=== PATIENT | female | born 1975 | race Caucasian/White ===

== ENCOUNTER 2025-05-29 17:55 | Emergency (ER) | payer OTHER, SELFPAY ==
[2025-05-29 17:57] VITALS: BP 141/90
[2025-05-29 18:32] LABS: Hematocrit 36.8 % (37.0-47.0); Hemoglobin 12.3 g/dL (12.0-16.0); Mean Corp Hgb Conc. 33.4 g/dL (33.0-37.0); Mean Corpuscular Volume 88.7 fL (81.0-99.0); Nucleated Red Blood Cells % 0 %; Platelet Count 294 10^3/uL (130-400); Red Cell Dist. Width 12.9 % (11.5-14.5)
[2025-05-29 18:43] LABS: ALT (SGPT) 19 U/L (0-35); AST (SGOT) 20 U/L (14-36); Albumin 4.4 g/dl (3.5-5.0); Alkaline Phosphatase 43 U/L (38-126); Blood Urea Nitrogen 12 mg/dl (7-17); Calcium 9.2 mg/dl (8.4-10.2); Carbon Dioxide 25 mmol/L (22-30); Chloride 105 mmol/L (98-107); Glucose 96 mg/dl (70-99); Potassium 4.0 mmol/L (3.5-5.1); Sodium 135 mmol/L (135-145); Total Protein 7.1 g/dl (6.3-8.2); eGFR > 60.00
[2025-05-29 18:58] LABS: Troponin I < 0.012 ng/ml
--- NOTE | 2025-05-29 20:56 | ED.GENMED ---
History of Present Illness
General
Chief Complaint: Cardiac Symptoms
Source: patient
Exam Limitations: none
Time Seen by Provider: 05/29/25 20:45
History of Present Illness
History of Present Illness:
Very pleasant 49-year-old female complaining of episodes of very localized chest pain. Each episode lasts a few seconds. They happen fairly frequently maybe 1 to 2/h. They are nonexertional. Nonpleuritic. No radiation to the arms back or neck.
No shortness of breath no diaphoresis no syncope or near syncope. She actually had an episode while I was talking to her and clinically had no change in her appearance. This episode lasted a few seconds. She admits to some stress. She exercised
Thursday without issues. She does weightlifting and Em.
Past History
Past History
ED Past Medical History: Psychiatric (Depression)
ED Past Surgical History: Appendectomy and Other (Bilateral foot surgery)
Social History
Tobacco: Non-smoker
Alcohol: Occasional
Drug: None
Personal:
Review of Systems
Review of Systems
All Other Systems: Not applicable
Constitutional: Denies fever
Respiratory: Reports no symptoms
ABD/GI: Reports no symptoms
Phy Exam
Physical Exam
Physical Exam:
GENERAL: Alert and oriented in no apparent distress
EYE: Orbits normal.
NECK: Supple
CARDIAC: Regular rate and rhythm without any obvious murmurs.
LUNGS: Clear breath sounds,normal
ABDOMEN: Soft, without focal tenderness or distention
NEUROLOGICAL: Alert and oriented , grossly non-focal
SKIN: Warm and dry, no rash or lesion, no discoloration, skin intact.
MUSCULOSKELETAL: No edema,no deformity.Good color
PSYCH: Normal and appropriate interaction.
Course
Orders/Labs/Results
Orders:
Orders
05/29/25 18:02
Electrocardiogram (*1) Urgent
Reason for Study: Chest Pain
EKG- Treatment ONCE
CR Chest - 2 Views Urgent
Comment:
Reason For Exam: chest pressure
05/29/25 18:11
Complete Blood Count/With Diff Urgent
Comprehensive Metabolic Panel Urgent
Troponin I Urgent
05/29/25 20:56
Electrocardiogram (*1) Stat
Reason for Study: Other
Other Reason for Exam: chest pain
EKG- Treatment ONCE
Troponin I Urgent
Abnormal Lab Results
05/29/25
18:11
RBC 4.15 L 10^6/uL
(4.20-5.40)
Hct 36.8 L %
(37.0-47.0)
05/29/25 18:11
05/29/25 18:11
Vital Signs
Initial and Last Documented VS:
Initial Vital Signs
Temp Pulse Resp BP Pulse Ox
98.0 F 82 18 141/90 99
05/29/25 17:57 05/29/25 17:57 05/29/25 17:57 05/29/25 17:57 05/29/25 17:57
Last Documented Vital Signs
Temp Pulse Resp BP Pulse Ox
98.0 F 82 18 141/90 99
05/29/25 17:57 05/29/25 17:57 05/29/25 17:57 05/29/25 17:57 05/29/25 17:57
MDM/Problems Addressed
Differential Diagnosis Includes:
Patient complaining of very atypical chest pain. Episodes last seconds. Very localized. Very nonexertional. No other cardiac symptoms. Exercise recently without issues. Normal troponin and EKG after 24+ hours of these episodes. We will repeat
EKG and troponin for completeness. Very low suspicion for pulmonary emboli or other serious etiology. She has no risk factors for pulmonary emboli. She has no calf swelling. Each episode again only last seconds and is not ongoing. She has a
normal pulse ox normal heart rate. No recent travel. Discussed options of outpatient follow-up with cardiology versus inpatient ration. Patient clearly is comfortable with outpatient follow-up which I think is very reasonable. We will await the
repeat troponin and EKG.
*Radiology
Radiology exam reviewed: preliminary read by ED provider (Negative)
*Pulse Oximetry
SaO2: 99
Oxygen Mode of Delivery: Room air
Patient hypoxic: no
*EKG
Interpretation: normal
Comparison EKG: no comparison EKG present
Heart Rate: 74
Rate: normal
Rhythm: sinus
[place]: normal axis
Interval: normal interval
QRS Pattern: normal QRS
Ischemia: no ischemia
ED Attending Note
-
Portions of this chart may have been created with voice recognition software.� Occasional wrong word or��sound alike� substitutions may have occurred due to the inherent limitations of voice recognition software.
Discharge Plan
Departure
Discharge Problem:
Recurring chest pain
Instructions: BLOOD PRESSURE, Chest Pain DCA Follow Up
Prescriptions:
No Action
escitalopram oxalate 10 MG tablet
10 mg PO DAILY
hydrocodone-acetaminophen 1 TABLET tablet
1 - 2 tab PO Q4HPRN PRN (Reason: pain not relieved by ibuprofen) Qty: 15 0RF
ibuprofen 600 MG tablet
600 mg PO Q6HPRN PRN (Reason: mild to moderate pain) 0RF
Interventions
Interventions:
*General Assessment Last Done: 05/29/25 17:57
Discharge Date and Time
Print Language: ICELANDIC
[2025-05-29 21:25] VITALS: BP 106/77
[2025-05-29 21:51] LABS: Troponin I < 0.012 ng/ml
== END 2025-05-29 22:32 | disposition home or self-care (01) ==
LOC: EMR 17:55
PROVIDERS: Emergency Medicine; EMERGENCY PHYSICIAN Emergency Medicine; FAMILY PHYSICIAN Family Medicine
DX: R07.89 Other chest pain (principal); Z90.49 Acquired absence of other specified parts of digestive tract
CPT/HCPCS: 99285; 71046; 80053; 84484; 85025; 93005